=== PATIENT | male | born 1955 | race Caucasian/White ===

== ENCOUNTER 2019-04-27 08:55 | Outpatient (CLI) | payer OTHER ==
--- NOTE | 2019-04-27 09:13 | RAD ---
EXAM: Two views chest PROVIDED CLINICAL HISTORY: Screening evaluation for respiratory tuberculosis. COMPARISON: None FINDINGS: Cardiac silhouette and pulmonary vasculature are within normal limits. There is mild prominence of t he left hilar structures, but this is most likely related to the central pulmonary vasculature. The lungs are clear. No consolidation or pleural effusion is seen. Mild degenerative changes are seen in the spine. IMPRESSION: 1. No acute cardiopulmonary process. 2. No radiographic findings to suggest active tuberculosis based on this exam.
== END 2019-04-27 08:56 | disposition home or self-care (01) ==
LOC: BICRAD 08:55
PROVIDERS: ATTEND Family Medicine
DX: Z11.1 Encounter for screening for respiratory tuberculosis (principal)
CPT/HCPCS: 71046